=== PATIENT | female | born 1975 | race Caucasian/White ===

== ENCOUNTER 2022-06-13 19:58 | Inpatient (IN) | payer MEDICAID, OTHER ==
[~2022-06-13] VITALS: Ht 172.7 cm; Wt 79.1 kg
[2022-06-13] MEDS ORDERED: ACETAMINOPHEN 325MG TABLET PO STA (20:09)
[2022-06-13] MEDS ORDERED: ONDANSETRON 4MG ODT PO STA (20:09)
[2022-06-13 20:28] LABS: BASOPHILS % 1.3 % (0.0-2.0); LYMPHOCYTES % 11.9 % (20.0-50.0); MEAN CORPUSCULAR HEMOGLOBIN 23.8 pg (28.0-32.0); MEAN CORPUSCULAR VOLUME 75.6 fL (81.0-99.0); MONOCYTES % 8.2 % (2.0-8.0); NEUTROPHILS % 78.6 % (40.0-76.0); PLATELET 119 x1000/uL (130-400); RED BLOOD CELL COUNT 2.22 mill/uL (4.2-5.4); RED CELL DISTRIBUTION WIDTH 18.6 % (11.6-14.6)
[2022-06-13 20:36] LABS: CHLORIDE 98 mEq/L (98-107); HEMATOCRIT. 16.8 % (36.0-48.0); HEMOGLOBIN. 5.3 g/dL (12.0-16.0)
[2022-06-13] MEDS ORDERED: PANTOPRAZOLE SODIUM 40 MG/VIAL IV NR (20:36)
[2022-06-13] MEDS ORDERED: SODIUM CHLORIDE 0.9% 1,000 ML IV ONE (20:45)
[2022-06-13 20:49] LABS: INR 1.5; PROTHROMBIN TIME 15.6 sec (9.6-11.0)
[2022-06-13] MEDS ORDERED: PANTOPRAZOLE 80 MG in SODIUM CHLORIDE 0.9% 100 ML IV ONE (22:00)
[2022-06-13 22:02] LABS: INR 1.5; PARTIAL THROMBOPLASTIN TIME 24.2 sec (23.4-31.0); PROTHROMBIN TIME 15.6 sec (9.6-11.0)
[2022-06-13] MEDS ORDERED: OCTREOTIDE ACETATE 50 MCG/ML 1ML IV NR (22:31)
[2022-06-13] MEDS ORDERED: OCTREOTIDE 1,000 MCG in SODIUM CHLORIDE 0.9% 100 ML IV NR ×2 (22:31→22:47)
[2022-06-13] MEDS ORDERED: CEFTRIAXONE 2GM/50ML (ADDEASE) 50 ML IV NR (22:45)
[2022-06-13] MEDS ORDERED: ACETAMINOPHEN 325MG TABLET PO NR (23:45)
[2022-06-14] MEDS ORDERED: IOHEXOL-300 100 ML BOTTLE ONE (04:17)
[2022-06-14 06:32] LABS: CLARITY URINE CLEAR (CLEAR); COLOR URINE DARK YELLOW (YELLOW); KETONES URINE TRACE (NEGATIVE); LEUKOCYTE ESTERASE URINE NEGATIVE (NEGATIVE); NITRITE URINE NEGATIVE (NEGATIVE); OCCULT BLOOD URINE NEGATIVE (NEGATIVE); PH URINE 6.5 (4.5-8.0); PROTEIN URINE TRACE (NEGATIVE); SPECIFIC GRAVITY URINE 1.066 (1.005-1.030)
[2022-06-14] MEDS ORDERED: DEXTROSE 50% WATER 50ML SYRINGE IV PRN (08:30)
[2022-06-14 09:26] LABS: HEMATOCRIT 24.4 % (36.0-48.0)
[2022-06-14] MEDS: PANTOPRAZOLE SODIUM 40 MG/VIAL IV SCH ×2 (10:28→20:54)
[2022-06-14] MEDS ORDERED: OCTREOTIDE 1,000 MCG in SODIUM CHLORIDE 0.9% 98 ML IV PRN (12:00)
[2022-06-14] MEDS: INSULIN LISPRO 100 UNITS/ML SUBCUT SCH ×3 (12:00→20:54)
[2022-06-14] MEDS: BLOOD SUGAR DIAGNOSTIC STRIP TEST SCH ×3 (12:16→20:54)
[2022-06-14 15:08] VITALS: BP 126/99
[2022-06-14 15:10] VITALS: BP 126/99
[2022-06-14 18:00] VITALS: BP 112/66
[2022-06-14 19:11] LABS: HEPATITIS B SURFACE ANTIGEN NEGATIVE
[2022-06-14 20:00] VITALS: BP 128/71
[2022-06-14 21:57] LABS: HEMATOCRIT 24.2 % (36.0-48.0)
[2022-06-14 22:00] VITALS: BP 102/58
[2022-06-14 22:04] LABS: INR 1.5; PROTHROMBIN TIME 16.2 sec (9.6-11.0)
[2022-06-15] VITALS (25 sets, daily range): BP systolic 93–131; BP diastolic 53–72
[2022-06-15 06:11] LABS: EOSINOPHILS % 1.6 % (0.0-5.0); HEMATOCRIT. 22.1 % (36.0-48.0); HEMOGLOBIN. 7.3 g/dL (12.0-16.0); LYMPHOCYTES % 28.7 % (20.0-50.0); MEAN CORPUSCULAR HEMOGLOBIN 26.7 pg (28.0-32.0); MEAN CORPUSCULAR VOLUME 80.5 fL (81.0-99.0); MEAN PLATELET VOLUME 9.1 fl (7.4-10.4); MONOCYTES % 5.8 % (2.0-8.0); NEUTROPHILS % 62.9 % (40.0-76.0); RED BLOOD CELL COUNT 2.74 mill/uL (4.2-5.4); RED CELL DISTRIBUTION WIDTH 18.7 % (11.6-14.6)
[2022-06-15] MEDS: INSULIN LISPRO 100 UNITS/ML SUBCUT SCH ×4 (06:13→21:00)
[2022-06-15] MEDS: BLOOD SUGAR DIAGNOSTIC STRIP TEST SCH ×4 (06:13→21:08)
[2022-06-15 06:20] LABS: CHLORIDE 108 mEq/L (98-107); INR 1.6; PROTHROMBIN TIME 16.5 sec (9.6-11.0)
[2022-06-15 06:31] LABS: TOTAL IRON BINDING CAPACITY 318 ug/dL (250-450)
[2022-06-15 06:50] LABS: FOLIC ACID (FOLATE) SERUM 14.1 ng/mL (>5.38)
[2022-06-15] MEDS: PANTOPRAZOLE SODIUM 40 MG/VIAL IV SCH ×2 (08:29→21:08)
[2022-06-15 08:51] LABS: PLATELET 47 x1000/uL (130-400); PLATELET ESTIMATE MARKEDLY DECREASED
[2022-06-15] MEDS ORDERED: LACTULOSE 20G/30ML UDC PO PRN (10:30)
[2022-06-15] MEDS ORDERED: PHYTONADIONE 10MG/ML AMP SUBCUT NR (11:00)
[2022-06-15] MEDS: IRON SUCROSE COMPLEX 100 MG/5 ML ML IV SCH (13:24)
[2022-06-15 18:55] LABS: BASOPHILS % 0.9 % (0.0-2.0); EOSINOPHILS % 1.2 % (0.0-5.0); HEMATOCRIT. 24.9 % (36.0-48.0); HEMOGLOBIN. 8.2 g/dL (12.0-16.0); MEAN CORPUSCULAR HEMOGLOBIN 27.6 pg (28.0-32.0); MEAN CORPUSCULAR VOLUME 83.7 fL (81.0-99.0); MONOCYTES % 6.8 % (2.0-8.0); NEUTROPHILS % 72.1 % (40.0-76.0); RED BLOOD CELL COUNT 2.98 mill/uL (4.2-5.4); RED CELL DISTRIBUTION WIDTH 19.1 % (11.6-14.6)
[2022-06-15 20:20] LABS: HEMATOCRIT 27.3 % (36.0-48.0); HEMOGLOBIN 8.8 g/dL (12.0-16.0)
[2022-06-15 20:28] LABS: INR 1.5; PROTHROMBIN TIME 15.6 sec (9.6-11.0)
[2022-06-15 23:30] LABS: MEAN PLATELET VOLUME 8.9 fl (7.4-10.4); PLATELET 48 x1000/uL (130-400)
[2022-06-16] VITALS (12 sets, daily range): BP systolic 106–139; BP diastolic 55–82
[2022-06-16 05:59] LABS: INR 1.4; PROTHROMBIN TIME 14.3 sec (9.6-11.0)
[2022-06-16] MEDS: INSULIN LISPRO 100 UNITS/ML SUBCUT SCH ×4 (07:30→21:00)
[2022-06-16] MEDS: BLOOD SUGAR DIAGNOSTIC STRIP TEST SCH ×4 (07:30→21:00)
[2022-06-16] MEDS: PHYTONADIONE 10MG/ML AMP SUBCUT SCH (09:34)
[2022-06-16] MEDS: PANTOPRAZOLE SODIUM 40 MG/VIAL IV SCH ×2 (09:34→21:04)
[2022-06-16 09:56] LABS: BASOPHILS % 0.8 % (0.0-2.0); EOSINOPHILS % 2.6 % (0.0-5.0); HEMATOCRIT. 26.4 % (36.0-48.0); HEMOGLOBIN. 8.7 g/dL (12.0-16.0); LYMPHOCYTES % 19.3 % (20.0-50.0); MEAN CORPUSCULAR HEMOGLOBIN 27.7 pg (28.0-32.0); MEAN CORPUSCULAR VOLUME 84.5 fL (81.0-99.0); MEAN PLATELET VOLUME 9.5 fl (7.4-10.4); MONOCYTES % 5.4 % (2.0-8.0); NEUTROPHILS % 71.9 % (40.0-76.0); PLATELET 55 x1000/uL (130-400); RED BLOOD CELL COUNT 3.13 mill/uL (4.2-5.4); RED CELL DISTRIBUTION WIDTH 19.5 % (11.6-14.6)
[2022-06-16 10:23] LABS: CHLORIDE 108 mEq/L (98-107)
[2022-06-16] MEDS: IRON SUCROSE COMPLEX 100 MG/5 ML ML IV SCH (11:38)
[2022-06-16 11:44] LABS: HCG SCREEN NEGATIVE
[2022-06-16] MEDS ORDERED: MIDAZOLAM HCL 2 MG/2 ML VIAL ONE ×2 (16:26)
[2022-06-16] MEDS ORDERED: PROPOFOL 200MG/20ML VIAL IV ONE ×2 (16:27→16:56)
[2022-06-16] MEDS ORDERED: LIDOCAINE HCL 1% 10 MG/ML 10ML VIAL ONE (16:27)
[2022-06-16] MEDS: SUCRALFATE 1 G/10 ML UDC PO SCH (21:04)
[2022-06-17] VITALS (8 sets, daily range): BP systolic 101–127; BP diastolic 51–74
[2022-06-17] MEDS: ACETAMINOPHEN 325MG TABLET PO PRN ×5 (04:42→10:12)
[2022-06-17] MEDS: SUCRALFATE 1 G/10 ML UDC PO SCH ×4 (05:22→22:16)
[2022-06-17 05:35] LABS: HEMATOCRIT 25.9 % (36.0-48.0); HEMOGLOBIN 8.5 g/dL (12.0-16.0)
[2022-06-17] MEDS: INSULIN LISPRO 100 UNITS/ML SUBCUT SCH ×4 (07:00→22:47)
[2022-06-17] MEDS: BLOOD SUGAR DIAGNOSTIC STRIP TEST SCH ×4 (07:00→21:00)
[2022-06-17] MEDS: PHYTONADIONE 10MG/ML AMP SUBCUT SCH (08:24)
[2022-06-17] MEDS: PANTOPRAZOLE SODIUM 40 MG/VIAL IV SCH ×2 (08:24→22:17)
[2022-06-17] MEDS ORDERED: OMEP40CA20 MT (09:45)
[2022-06-17] MEDS: IRON SUCROSE COMPLEX 100 MG/5 ML ML IV SCH (11:10)
[2022-06-17] MEDS: LACTULOSE 20G/30ML UDC PO SCH ×2 (15:00→22:17)
[2022-06-18] VITALS: BP 104/61
[2022-06-18 04:00] VITALS: BP 111/59
[2022-06-18] MEDS: LACTULOSE 20G/30ML UDC PO SCH ×2 (06:01→13:30)
[2022-06-18] MEDS: BLOOD SUGAR DIAGNOSTIC STRIP TEST SCH ×2 (06:07→12:55)
[2022-06-18] MEDS: INSULIN LISPRO 100 UNITS/ML SUBCUT SCH ×2 (07:50→13:08)
[2022-06-18 07:59] LABS: BASOPHILS % 0.8 % (0.0-2.0); EOSINOPHILS % 2.2 % (0.0-5.0); HEMATOCRIT. 27.3 % (36.0-48.0); LYMPHOCYTES % 7.7 % (20.0-50.0); MEAN CORPUSCULAR HEMOGLOBIN 28.2 pg (28.0-32.0); MEAN CORPUSCULAR VOLUME 85.1 fL (81.0-99.0); MEAN PLATELET VOLUME 9.3 fl (7.4-10.4); MONOCYTES % 6.8 % (2.0-8.0); NEUTROPHILS % 82.5 % (40.0-76.0); PLATELET 62 x1000/uL (130-400); RED BLOOD CELL COUNT 3.21 mill/uL (4.2-5.4); RED CELL DISTRIBUTION WIDTH 20.2 % (11.6-14.6)
[2022-06-18 08:00] VITALS: BP 102/55
[2022-06-18 08:34] LABS: CHLORIDE 110 mEq/L (98-107)
[2022-06-18] MEDS: SUCRALFATE 1 G/10 ML UDC PO SCH ×2 (09:39→12:55)
[2022-06-18] MEDS: PANTOPRAZOLE SODIUM 40 MG/VIAL IV SCH (09:39)
[2022-06-18] MEDS: PHYTONADIONE 10MG/ML AMP SUBCUT SCH (09:39)
[2022-06-18] MEDS ORDERED: POTASSIUM CHLORIDE 20MEQ TABLET SR PO NR (10:45)
[2022-06-18] MEDS ORDERED: PROP10TA10 MT (11:16)
[2022-06-18] MEDS ORDERED: OMEP40CA20 MT (11:16)
[2022-06-18] MEDS ORDERED: SUCR1TAB30 MT (11:17)
[2022-06-18 12:00] VITALS: BP 127/71
[2022-06-18 14:17] VITALS: BP 127/71
== END 2022-06-18 15:42 | disposition home or self-care (01) ==
LOC: ER 19:58 → MICUSO 22:57 → EDBEDREQTM 23:05 → EDBEDREQ 23:05 → MICUNO 06-14 19:18 → 6EST 06-17 14:27
PROVIDERS: ADMIT Internal Medicine; ATTEND Internal Medicine
PROC: 30233N1 Transfusion of Nonautologous Red Blood Cells into Peripheral Vein, Percutaneous Approach (ICD-10-PCS; 2022-06-13)
PROC: 30233K1 Transfusion of Nonautologous Frozen Plasma into Peripheral Vein, Percutaneous Approach (ICD-10-PCS; 2022-06-15)
PROC: 06L38CZ Occlusion of Esophageal Vein with Extraluminal Device, Via Natural or Artificial Opening Endoscopic (ICD-10-PCS; principal; 2022-06-16)
PROC: 0DB78ZX Excision of Stomach, Pylorus, Via Natural or Artificial Opening Endoscopic, Diagnostic (ICD-10-PCS; 2022-06-16)
DX: K74.60 Unspecified cirrhosis of liver (principal); I85.11 Secondary esophageal varices with bleeding; E43 Unspecified severe protein-calorie malnutrition; D68.9 Coagulation defect, unspecified; E87.20 Acidosis, unspecified; K76.6 Portal hypertension; E88.09 Other disorders of plasma-protein metabolism, not elsewhere classified; E87.1 Hypo-osmolality and hyponatremia; D69.59 Other secondary thrombocytopenia; E11.65 Type 2 diabetes mellitus with hyperglycemia; K57.90 Diverticulosis of intestine, part unspecified, without perforation or abscess without bleeding; D50.9 Iron deficiency anemia, unspecified; K31.89 Other diseases of stomach and duodenum; K80.20 Calculus of gallbladder without cholecystitis without obstruction; R18.8 Other ascites; R16.1 Splenomegaly, not elsewhere classified; Z20.822 Contact with and (suspected) exposure to COVID-19; Z86.16 Personal history of COVID-19; Z68.26 Body mass index [BMI] 26.0-26.9, adult
CPT/HCPCS: 36415; 71045; 74177; 76700; 80048; 80053; 80076; 81003; 82140; 82607; 82728; 82746; 82962; 83036; 83540; 83550; 83605; 84703; 85014; 85018; 85025; 86803; 86850; 86900; 86920; 86927; 87340; 87426; 88305; 93005; 99291; C9113; J0696; J1815; J2250; J2354; J2704; J3430; J3490; J7050; P9016; P9017; Q9967